=== PATIENT | female | born 1940 | race Caucasian/White ===

== ENCOUNTER 2023-04-18 21:26 | Inpatient (IN) | payer OTHER ==
[2023-04-18] MEDS ORDERED: ACETAMINOPHEN INJECTION 100 ML IVPB ONE (22:45)
[2023-04-18] MEDS: ACETAMINOPHEN 1000 MG/100 ML BAG IVPB ONE (23:15)
[2023-04-18 23:22] LABS: HEMATOCRIT 33.4 % (32.4-45.2); HEMOGLOBIN 11.5 G/dL (10.7-15.3); MCH 33.1 pg (25.7-33.7); MCHC 34.6 g/dl (32.0-36.0); MEAN CELL VOLUME 95.6 fl (80-96); MEAN PLT VOLUME 7.5 fl (7.5-11.1); PLATELET COUNT 141.5 10^3/uL (134-434); RBC 3.49 10^6/uL (3.60-5.2); RDW 14.9 % (11.6-15.6); WHITE BLOOD COUNT 11.7 10^3/uL (4.0-10.8)
[2023-04-18 23:32] LABS: INR 1.19 (0.83-1.09); PROTHROMBIN TIME (PATIENT) 13.8 SEC (9.7-13.0)
[2023-04-18] MEDS: ACETAMINOPHEN 500 MG TABLET (FP) PO ONE (23:34)
[2023-04-18 23:35] LABS: ACTIVATED PTT 28.7 SECONDS (25.2-36.5)
[2023-04-18 23:41] LABS: PLATELET ESTIMATE ADEQUATE
[2023-04-18 23:42] LABS: ALBUMIN 3.5 g/dl (3.4-5.0); BILIRUBIN,TOTAL 0.9 mg/dl (0.2-1); CALCIUM 8.9 mg/dl (8.5-10.1); CREATININE 0.6 mg/dl (0.6-1.3); POTASSIUM 3.8 mmol/L (3.5-5.1); TOT PROT 5.7 g/dl (6.4-8.2)
[2023-04-18] MEDS ORDERED: cefTRIAXone SODIUM 1 GM VIAL ONE (23:52)
[2023-04-18] MEDS: CEFTRIAXONE 1,000 MG in DEXTROSE 5%-WATER - 50 ML IVPB ONE (23:55)
[2023-04-19] MEDS: CEFTRIAXONE 1 GM in DEXTROSE 5%-WATER - 50 ML IVPB SCH (09:18)
[2023-04-19 09:39] LABS: BASO % 0.2 % (0-2.0); EOS % 0.2 % (0-4.5); HEMATOCRIT 32.2 % (32.4-45.2); HEMOGLOBIN 10.8 GM/dL (10.7-15.3); LYMPH % 7.8 % (8-40); MCH 31.5 pg (25.7-33.7); MCHC 33.5 g/dl (32.0-36.0); MEAN PLT VOLUME 7.4 fl (7.5-11.1); MONO % 6.1 % (3.8-10.2); NEUT % 85.7 % (42.8-82.8); PLATELET COUNT 154 10^3/uL (134-434); RBC 3.42 M/mm3 (3.60-5.2); RDW 15.4 % (11.6-15.6); WHITE BLOOD COUNT 11.5 K/mm3 (4.0-10.0)
[2023-04-19 09:48] LABS: POTASSIUM 3.9 mmol/L (3.5-5.1)
[2023-04-19 09:50] LABS: CALCIUM 8.3 mg/dL (8.5-10.1)
[2023-04-19 09:51] LABS: BLOOD UREA NITROGEN 13.4 mg/dL (7-18)
[2023-04-19 09:53] LABS: CREATININE 0.6 mg/dL (0.55-1.3)
[2023-04-19] MEDS ORDERED: VANCOMYCIN 1,000 MG VIAL (RESTRICTED TO ID ONLY) ONE (10:39)
[2023-04-19] MEDS: ACETAMINOPHEN 1000 MG/100 ML BAG IVPB PRN (10:40)
[2023-04-19] MEDS ORDERED: BUPIVACAINE HCL/PF 0.5% (5MG/ML) 10 ML VIAL ONE (11:40)
[2023-04-19] MEDS ORDERED: PROPOFOL 20 ML ONE (11:46)
[2023-04-19] MEDS ORDERED: ceFAZolin SODIUM 1 GM VIAL ONE (12:18)
[2023-04-19] MEDS: ceFAZolin SODIUM 1 GM VIAL IVPB ONE (12:30)
[2023-04-19] MEDS ORDERED: MAG HYDROX/AL HYDROX/SIMETH 30 ML UNIT-DOSE CUP PO PRN (13:44)
[2023-04-19] MEDS ORDERED: ONDANSETRON 4 MG/2 ML VIAL IVPUSH PRN (13:44)
[2023-04-19] MEDS ORDERED: MAGNESIUM HYDROX 2400MG/30ML ORAL SUSPENSION 30 ML CUP PO PRN (13:44)
[2023-04-19] MEDS ORDERED: ACETAMINOPHEN INJECTION 100 ML IVPB ONE (14:58)
[2023-04-19] MEDS: ACETAMINOPHEN 1000 MG/100 ML BAG IVPB ONE (15:03)
[2023-04-19] MEDS ORDERED: KETOROLAC TROMETHAMINE 30 MG/1 ML VIAL ONE (15:44)
[2023-04-19] MEDS: KETOROLAC TROMETHAMINE 15 MG/ML VIAL IVPUSH ONE (15:45)
[2023-04-19] MEDS: LACTATED RINGERS SOLUTION 1,000 ML IV SCH ×2 (15:58→16:15)
[2023-04-19 18:30] VITALS: RESP 18
[2023-04-19] MEDS ORDERED: ATORVASTATIN CA 20 MG TABLET (FP) PO SCH (22:00)
[2023-04-19] MEDS ORDERED: PATIENT'S OWN MEDICATION (NON-FORMULARY) (Timolol Maleate/Pf [Timolol Maleate 0.5% Eye Dro NR SCH (22:00)
[2023-04-19] MEDS ORDERED: LATANOPROST 0.005% OPHTH SOLN 2.5ML BOTTLE OU SCH (22:00)
[2023-04-19] MEDS: CEFAZOLIN SODIUM 1 GM in DEXTROSE 5%-WATER 100 ML IVPB SCH (22:22)
[2023-04-19] MEDS: GABAPENTIN 300 MG CAPSULE PO SCH (22:23)
[2023-04-19] MEDS: SENNOSIDES/DOCUSATE COMBO (SENNA PLUS) TABLET (UD) PO SCH (22:24)
[2023-04-19] MEDS: ATORVASTATIN CA 20 MG TABLET (FP) PO SCH (22:24)
[2023-04-19] MEDS: TIMOLOL 0.5% OPHTHALMIC SOL 5 ML BOTTLE OU SCH (23:35)
[2023-04-19] MEDS: LATANOPROST 0.005% OPHTH SOLN 2.5ML BOTTLE OU SCH (23:36)
[2023-04-20] MEDS: ACETAMINOPHEN 1000 MG/100 ML BAG IVPB PRN (05:55)
[2023-04-20] MEDS: ENOXAPARIN NA (PORCINE) 40 MG/0.4 ML DISP.SYRIN SQ SCH (10:28)
[2023-04-20] MEDS: MULTIVITAMINS (DAILY MVI) TABLET (FP) PO SCH (10:54)
[2023-04-20] MEDS: PANTOPRAZOLE 40 MG TABLET PO SCH (10:54)
[2023-04-20 10:55] LABS: HEMATOCRIT 26.1 % (32.4-45.2); HEMOGLOBIN 8.9 GM/dL (10.7-15.3); MCH 32.4 pg (25.7-33.7); MEAN CELL VOLUME 95.1 fl (80-96); MEAN PLT VOLUME 7.6 fl (7.5-11.1); PLATELET COUNT 136 10^3/uL (134-434); RBC 2.74 M/mm3 (3.60-5.2); RDW 14.9 % (11.6-15.6); WHITE BLOOD COUNT 7.2 K/mm3 (4.0-10.0)
[2023-04-20 11:21] LABS: BLOOD UREA NITROGEN 17.3 mg/dL (7-18); CALCIUM 8.4 mg/dL (8.5-10.1)
[2023-04-20 11:25] LABS: CREATININE 0.6 mg/dL (0.55-1.3)
[2023-04-20] MEDS: IRON SUCROSE INJECTION 200 MG in SODIUM CHLORIDE 90 ML IVPB ONE (15:17)
[2023-04-21 09:03] LABS: HEMATOCRIT 25.2 % (32.4-45.2); HEMOGLOBIN 8.7 GM/dL (10.7-15.3); MCH 32.9 pg (25.7-33.7); MCHC 34.7 g/dl (32.0-36.0); MEAN CELL VOLUME 94.8 fl (80-96); MEAN PLT VOLUME 7.8 fl (7.5-11.1); PLATELET COUNT 152 10^3/uL (134-434); RBC 2.66 M/mm3 (3.60-5.2); RDW 14.7 % (11.6-15.6); WHITE BLOOD COUNT 8.2 K/mm3 (4.0-10.0)
[2023-04-21] MEDS: IRON SUCROSE INJECTION 200 MG in SODIUM CHLORIDE 90 ML IVPB ONE (13:24)
[2023-04-21 14:19] VITALS: BMI 20.8
[2023-04-21 17:46] VITALS: BP 104/49; PULSE 57; TEMP 98.5
== END 2023-04-21 21:11 | DRG 522 ==
LOC: FER 21:26 → J5S 04-19 06:00
PROVIDERS: ADMIT Family Medicine; ATTEND Family Medicine
PROC: 0SRR0JZ Replacement of Right Hip Joint, Femoral Surface with Synthetic Substitute, Open Approach (ICD-10-PCS; principal; 2023-04-19 08:18)
DX: S72.001A Fracture of unspecified part of neck of right femur, initial encounter for closed fracture (principal); N39.0 Urinary tract infection, site not specified; I10 Essential (primary) hypertension; E78.5 Hyperlipidemia, unspecified; F03.90 Unspecified dementia, unspecified severity, without behavioral disturbance, psychotic disturbance, mood disturbance, and anxiety; K21.9 Gastro-esophageal reflux disease without esophagitis; M81.0 Age-related osteoporosis without current pathological fracture; F41.9 Anxiety disorder, unspecified; B96.20 Unspecified Escherichia coli [E. coli] as the cause of diseases classified elsewhere; W18.30XA Fall on same level, unspecified, initial encounter; Y92.098 Other place in other non-institutional residence as the place of occurrence of the external cause; Y99.9 Unspecified external cause status
CPT/HCPCS: 0241U-QW; 36415; 70450-TC; 71045-TC-FY; 72125-TC; 72170-TC-FY; 73502-TC-RT-FY; 73552-TC-RT-FY; 73562-TC-RT-FY; 80048; 80053; 81003; 81015; 82607; 82728; 82746; 83540; 83550; 85025; 85027; 85610; 85730; 86850; 86900; 86901; 87040; 87086; 87186; 88307-TC; 88311-TC; 93005; 93010; 94760; 97116-GP; 97162-GP; 99285-25; C1776; C1889; J0131; J1756